=== PATIENT | female | born 1980 | race Caucasian/White ===

== ENCOUNTER 2020-08-05 03:26 | Emergency (ER) | payer BC, SELFPAY ==
--- NOTE | ~2020-08-05 | XR_ITS ---
EXAMINATION: XR shoulder LT min 2V DATE: 08/05/2020 03:50 INDICATION: Left shoulder pain post fall TECHNIQUE: AP internally and externally rotated, AP oblique externally rotated and transscapular Y vi ews of the left shoulder were obtained. COMPARISON: None FINDINGS: Transverse fracture of the mid left clavicular diaphysis with 2 shaft widths cephalad displacement of the medial fragment which appears to tent the overlying skin. There is also 1.5 cm of overriding. Al ignment is otherwise normal. No other fractures identified. Glenohumeral joint is normal. Mild acromi oclavicular osteoarthritis. Slice portions of the upper lungs are clear. IMPRESSION: Displaced left clavicular mid diaphyseal fracture with overriding. Reviewed, dictated and finalized at location A. EE SUPERVISOR
[2020-08-05 03:31] VITALS: BP 133/92; PULSE 91; RESP 16; TEMP 36.3; O2SAT 98
[2020-08-05] MEDS: HYDROcodone/acetaminophen (*CRX) 5-325 MG TABLET 1 TAB PO (03:38)
--- NOTE | 2020-08-05 03:49 | ED.GENADULT ---
HPI - General Adult General Chief complaint: Fall Stated complaint: fall History of Present Illness HPI narrative: Patient is a 40-year-old female who presents the emergency department with chief complaint of left clavicle pain. Patient reports that she was drinking tonight and fell and has pain in her left clavicle. Patient states the pain is worse with movement and improved with rest patient denies loss of consciousness denies head injury Related Data Allergies Allergy/AdvReac Type Severity Reaction Status Date / Time No Known Allergies Allergy Unverified 02/07/17 16:12 Review of Systems Review of Systems: Narrative: A 10 system review of systems was completed on the patient and is negative except for what is stated in the HPI. Nursing and ancillary documentation was reviewed. PMFSH Social History Social History Gender identity (if verbalized by the patient): Female Comments Patient reports history of fibromyalgia Social history the patient reports social alcohol use Exam Narrative: Exam Narrative: GENERAL: Well-appearing, well-nourished, and in no acute distress. HEAD: Normocephalic, atraumatic. EYES: PERRLA and EOMI. ENT: Nares clear, no rhinorrhea or epistaxis. Mucous membranes moist. NECK: Supple. CHEST: Clear to auscultation. No respiratory distress. HEART: Regular rate and rhythm. No murmur heard. Normal peripheral pulses. ABDOMEN: Soft, nontender, nondistended, normal active bowel sounds. EXTREMITIES: Normal range of motion. No edema. There is tenderness to palpation in the left clavicle region SKIN: Warm, dry, no rash. NEURO: No focal deficits. Alert and oriented x3. PSYCH: Normal mood and affect. Course Vital Signs Vital signs: Vital Signs Temperature 36.3 C L 08/05/20 03:31 Pulse Rate 91 08/05/20 03:31 Respiratory Rate 16 08/05/20 03:31 Blood Pressure 133/92 H 08/05/20 03:31 Pulse Oximetry 98 08/05/20 03:31 Temperature 36.3 C L 08/05/20 03:31 Pulse Rate 91 08/05/20 03:31 Respiratory Rate 16 08/05/20 03:31 Blood Pressure 133/92 H 08/05/20 03:31 Pulse Oximetry 98 08/05/20 03:31 Medical Decision Making Vital Signs Vital Signs: Vital Signs Temperature 36.3 C L 08/05/20 03:31 Pulse Rate 91 08/05/20 03:31 Respiratory Rate 16 08/05/20 03:31 Blood Pressure 133/92 H 08/05/20 03:31 Pulse Oximetry 98 08/05/20 03:31 Temperature 36.3 C L 08/05/20 03:31 Pulse Rate 91 08/05/20 03:31 Respiratory Rate 16 08/05/20 03:31 Blood Pressure 133/92 H 08/05/20 03:31 Pulse Oximetry 98 08/05/20 03:31 Discharge Plan Discharge Clinical Impression: Clavicular fracture Qualifiers: Encounter type: initial encounter Clavicle location: shaft Fracture type: closed Fracture alignment: displaced Laterality: left Qualified Code(s): S42.022A - Displaced fracture of shaft of left clavicle, initial encounter for closed fracture Patient Disposition: Home, Self-Care Condition: Stable Instructions: Antibiotic Form, Clavicle Fracture (ED), How to Use a Sling (ED) Prescriptions: New hydrocodone-acetaminophen [[place]] 5-325 mg tablet 1 tablet PO Q6H PRN (Reason: pain) 3 Days Qty: 12 RF: 0 Follow-up/Referrals: Beck Miller MD [Physician] - 1 Week UNKNOWN,DOCTOR [Non-Staff] - Time of Disposition: 04:03
== END 2020-08-05 04:42 | disposition home or self-care (01) ==
LOC: ANHED 04:15
PROVIDERS: Emergency Provider Emergency Medicine
DX: S42.022A Displaced fracture of shaft of left clavicle, initial encounter for closed fracture (principal)
CPT/HCPCS: 73030; 99284; A4565; A9270

== ENCOUNTER 2021-02-11 11:37 | Outpatient (CLI) | payer BC, SELFPAY ==
--- NOTE | ~2021-02-11 | US_ITS ---
EXAMINATION: US thyroid DATE: 02/11/2021 11:55 INDICATION: Goiter. Hypothyroidism. TECHNIQUE: Multiple ultrasound images of the thyroid were obtained. COMPARISON: None. FINDINGS: The right thyroid lobe measures 5.9 x 2.4 x 2.3 cm. The left thyroid lobe is absent. In the right th yroid lobe, there is a 2.1 cm solid, isoechoic, [id number] nodule with ill-defined margin withou t echogenic foci (TI-RADS TR3). In the right thyroid lobe, there is a 1.6 cm solid, isoechoic, wider- than-tall nodule with smooth margin without echogenic foci (TR3). IMPRESSION: 1. Thyroid nodules. Thyroid ultrasound is recommended in one year unless outside exams establish 5-ye ar stability. Reviewed, dictated and finalized at location A. IMPRESSION: 1. Thyroid nodules. Thyroid ultrasound is recommended in one year unless outsid e exams establish 5-year stability.
== END 2021-02-11 11:38 ==
DX: E04.2 Nontoxic multinodular goiter (principal); E03.9 Hypothyroidism, unspecified; R13.10 Dysphagia, unspecified
CPT/HCPCS: 76536

== ENCOUNTER 2023-04-17 14:07 | Emergency (ER) | payer BC, SELFPAY ==
[2023-04-17] VITALS (7 sets, daily range): BP systolic 110–136; BP diastolic 65–107; PULSE 75–104; RESP 17–20; TEMP 36.6; O2SAT 98–100
--- NOTE | ~2023-04-17 | CT_ITS ---
EXAMINATION: CT abdomen pelvis w con INDICATION: Abdominal cramping and diarrhea TECHNIQUE: Computed tomographic images of the abdomen and pelvis were obtained after the administrati on of 100 cc of Omnipaque 350 intravenous contrast. The dose-length product (DLP) was 645.22 mGy-cm. Automated exposure control and iterative reconstruction technique were employed. COMPARISON: None available FINDINGS: Minimal dependent atelectasis is present in the lung bases. The heart size is normal. A 4 m m nodule of the left lower lobe likely represents old granulomatous disease. There is a 12 mm hypoatt enuating lesion of the right hepatic lobe. The spleen, pancreas, gallbladder, and adrenal glands are normal. Hypoattenuating lesions in the kidneys, measuring up to 3 mm on the left, are too small to ch aracterize but likely represent cysts. No pathologically enlarged abdominal or pelvic lymph nodes are identified. No free intraperitoneal gas or evidence of bowel obstruction. The appendix is normal. Th ere is distention of the parametrial veins, left greater than right. There is a short segment of wall thickening in the distal descending colon. IMPRESSION: 1. Short segment of wall thickening in the distal descending colon, consistent with colitis. 2. 12 mm hypoattenuating lesion of the right hepatic lobe, likely benign in the absence of known will gnancy. Follow-up nonemergent MRI without and with contrast is recommended. 3. Dilated parametrial veins which can reflect pelvic venous congestion syndrome in the right clinica l setting. Reviewed, dictated and finalized at location F. IMPRESSION: 1. Short segment of wall thickening in the distal descending colon, consistent with colitis. 2. 12 mm hypoattenuating lesion of the right hepatic lobe, likely benign in the absence of known malignancy. Follow-up nonemergent MRI without and with contra st is recommended. 3. Dilated parametrial veins which can reflect pelvic venous congestion syndrom e in the right clinical setting.
[2023-04-17 15:16] LABS: Basophils Percent Auto 0.3 % (0.2-1.2); Eosinophils Absolute Auto 0.1 K/mm3 (0-0.3); Eosinophils Percent Auto 0.8 % (0-4.4); Hemoglobin 16.5 g/dL (12.0-15.0); Immature Granulocyte Absolute 0.03 K/mm3 (0.00-0.031); Immature Granulocyte Percent A 0.3 % (0-0.5); Lymphocytes Absolute Auto 1.68 K/mm3 (0.9-3.2); Lymphocytes Percent Auto 15.9 % (18.3-44.2); Mean Corpuscular Hemoglobin 28.6 pg (26-34); Mean Corpuscular Volume 86.8 fl (80-100); Mean Platelet Volume 9.6 fl (7.4-10.4); Monocytes Absolute Auto 0.8 K/mm3 (0.1-0.6); Monocytes Percent Auto 7.1 % (2.6-8.5); Neutrophils Percent Auto 75.6 % (45.5-73.1); Platelet Count Result 357 k/mm3 (150-375); Red Blood Count 5.76 M/mm3 (4.2-5.4); Red Cell Distribution Width 12.3 % (11.5-14.5); White Blood Count 10.6 K/mm3 (4.5-10.0)
[2023-04-17 15:26] LABS: Alanine Aminotransferase 18 U/L (6-35); Albumin Level 4.6 g/dL (3.5-5.1); Alkaline Phosphatase 73 U/L (38-126); Anion Gap 8 mmol/L (8-16); Aspartate Amino Transferase 24 U/L (14-36); Bilirubin,Total 0.9 mg/dL (0.2-1.3); Blood Urea Nitrogen 11 mg/dL (7-17); Carbon Dioxide 27 mmol/L (22-30); Chloride 103 mmol/L (98-107); Estimated CRCL calculation 80 ml/min; Estimated Glomerular Filt Rate > 60; Glucose 91 mg/dL (65-110); Sodium 138 mmol/L (137-145)
[2023-04-17 15:34] LABS: Prothrombin Time 13.1 Seconds (11.1-14.7)
[2023-04-17 15:35] LABS: Partial Thromboplastin Time 28.3 SECONDS (22.3-36.8)
--- NOTE | 2023-04-17 17:28 | ED.GIBLEED ---
HPI - GI Bleed General Chief complaint: GI Bleed Stated complaint: Rectal bleeding Time Seen by Provider: 04/17/23 16:03 History of Present Illness HPI Narrative: Patient is a 42-year-old female presenting with abdominal pain and rectal bleeding. Patient states that she woke up in the middle of the night with abdominal cramping and several episodes of diarrhea. States that then she developed hematochezia. States that she has had several episodes of passing bright red blood per rectum. States that she continues to have lower abdominal cramping and generalized malaise with decreased appetite. No fevers or chills, chest pain, shortness of breath, cough, vomiting, dysuria, hematuria, rashes. Related Data Allergies Allergy/AdvReac Type Severity Reaction Status Date / Time No Known Allergies Allergy Verified 04/17/23 14:07 Review of Systems Review of Systems: All systems reviewed & are unremarkable except as noted in HPI and below PMFSH Social History Social History Gender identity (if verbalized by the patient): Female Exam Narrative: GENERAL: Well-appearing, well-nourished, and in no acute distress. Pleasant and cooperative HEAD: Normocephalic, atraumatic. EYES: PERRLA and EOMI. ENT: Nares clear, no rhinorrhea or epistaxis. Mucous membranes moist. NECK: Supple. CHEST: No respiratory distress. HEART: Regular rate and rhythm ABDOMEN: Soft, diffuse lower abdominal pain, no guarding or rebound EXTREMITIES: Normal range of motion. No edema. SKIN: Warm, dry, no rash. NEURO: No focal deficits. Alert and oriented x3. PSYCH: Normal mood and affect. Course Vital Signs Vital signs: Vital Signs Temperature 98 F 04/17/23 14:34 Pulse Rate 104 H 04/17/23 14:34 Respiratory Rate 20 04/17/23 14:34 Blood Pressure 127/78 04/17/23 14:34 Pulse Oximetry 98 04/17/23 14:34 Oxygen Delivery Room Air 04/17/23 14:34 Temperature 98 F 04/17/23 14:34 Pulse Rate 83 04/17/23 20:54 Respiratory Rate 18 04/17/23 20:54 Blood Pressure 126/70 04/17/23 20:54 Pulse Oximetry 100 04/17/23 20:54 Oxygen Delivery Room Air 04/17/23 14:34 MDM - GI Bleed MDM Narrative Medical decision making narrative: Patient is a 42-year-old female presenting with abdominal cramping, diarrhea, hematochezia. Vitals are stable. Exam remarkable for the above. Blood work with mild leukocytosis. Hemoglobin is normal. Renal function is normal. Coags unremarkable. UA is unremarkable. CT abdomen pelvis shows evidence of colitis. There is a very small hypoattenuating nodule in the liver notes likely benign. Will require outpatient repeat imaging. Discussed the work-up with the patient. Patient feels improved following fluids. No further diarrhea or hematochezia. I suspect her episode of hematochezia is related to the colitis. Discussed appropriate supportive care and recommended PCP follow-up. Appropriate return precautions given. Patient voiced understanding and is agreeable with plan. Discharged in stable condition. Differential Diagnosis Differential diagnosis: Likely infectious diarrhea, gastritis, hematochezia and other (Colitis, abdominal cramping) Medical Records Attestation: I reviewed the patient's medical records. Lab Data Attestation: I reviewed the patient's lab results. 04/17/23 15:09 04/17/23 15:09 Labs: Lab Results 04/17/23 04/17/23 Range/Units 15:09 18:18 WBC 10.6 H (4.5-10.0) K/mm3 RBC 5.76 H (4.2-5.4) M/mm3 Hgb 16.5 H (12.0-15.0) g/dL Hct 50.0 H (37.0-47.0) % MCV 86.8 (80-100) fl MCH 28.6 (26-34) pg MCHC 33.0 (32-36) g/dl RDW 12.3 (11.5-14.5) % Plt Count 357 (150-375) k/mm3 MPV 9.6 (7.4-10.4) fl Immature Gran % (Auto) 0.3 (0-0.5) % Neut % (Auto) 75.6 H (45.5-73.1) % Lymph % (Auto) 15.9 L (18.3-44.2) % Dare % (Auto) 7.1 (2.6-8.5) % Eos % (Auto)
[2023-04-17] MEDS: SODIUM CHLORIDE 0.9% IV 1,000 ML 999 ML IV CONT (17:38)
[2023-04-17 18:31] LABS: Appearance Urine Clear (Clear); Bilirubin Urine Negative (Negative); Blood Urine Negative (Negative); Color Urine Yellow (Yellow); Glucose Urine UA Negative (Negative); Ketones Urine 2+ mg/dL (Negative); Leukocyte Esterase Ur Negative LEU/UL (Negative); Nitrate Urine Negative (Negative); Protein Urine Negative (Negative); Specific Grav Ur 1.014 (1.001-1.035); Urobilinogen Urine 0.2 mg/dL (<2.0); pH Urine 5.5 (5.0-9.0)
[2023-04-17 18:34] LABS: Pregnancy On Board Control Positive; Urine Pregnancy Test Negative
[2023-04-17 18:37] LABS: Add Urine Microscopic? NO
== END 2023-04-17 20:55 | disposition home or self-care (01) ==
PROVIDERS: Emergency Provider Emergency Medicine
DX: K52.9 Noninfective gastroenteritis and colitis, unspecified (principal); K76.9 Liver disease, unspecified; I86.8 Varicose veins of other specified sites
CPT/HCPCS: 36415; 74177; 80053; 81003; 81025; 85025; 85610; 85730; 86850; 86900; 86901; 96360; 99284; J7030; Q9967

== ENCOUNTER 2023-05-06 14:30 | Outpatient (CLI) | payer BC, SELFPAY ==
--- NOTE | ~2023-05-06 | MR_ITS ---
MRI of the abdomen: Clinical indication: Liver lesion. Technique: Coronal SSFSE ARC, WATER:coronal LAVA-FLEX, Coronal 2D FIESTA FatSat, Axial SSFSE BH ARC, Axial 3D DualEcho BH, Axial SSFSE-IR, Axial DWI b=500, Axial 2D FIESTA FatSat, pre and dynamic postco ntrast Axial LAVA ARC, postcontrast Coronal In and Opposed phase LAVA FLEX. Following intravenous adm inistration of 15 cc MultiHance gadolinium, T1-weighted fat-sat imaging was performed in the axial an d coronal planes. COMPARISON: CT scan dated 04/17/2023 Findings: Gallbladder is unremarkable. The common bile duct is normal in course and caliber. No filli ng defects are seen within the CBD. No evidence of intrahepatic biliary ductal dilatation. The pancre atic duct is normal in size. There is a small focus of hypointense signal in the right hepatic lobe on a single T1-weighted postco ntrast sequence (series 1301 image [id number]), which appears to correspond to the CT finding, but no other significant abnormality is clearly appreciable on any other pulse sequences. Spleen, pancreas, adrena ls, kidneys appear normal. The aorta and the paraaortic regions appear normal. Impression: Small hypointense focus in the right hepatic lobe on a single imaging sequence which corresponds to t he CT finding. Precise etiology remains indeterminate, but no suspicious enhancement evident. Finding is most likely benign. Consider 12 month follow-up exam to assure stability. Reviewed, dictated and finalized at [facility]. Impression: Small hypointense focus in the right hepatic lobe on a single imaging sequence which corresponds to the CT finding. Precise etiology remains indeterminate, bu t no suspicious enhancement evident. Finding is most likely benign. Consider 12 month follow-up exam to assure stability.
== END 2023-05-06 14:31 ==
LOC: MICIMG 14:34
DX: K76.9 Liver disease, unspecified (principal)
CPT/HCPCS: 74183; A9577